=== PATIENT | female | born 1975 | race Hispanic/Latino ===

== ENCOUNTER 2016-10-16 16:44 | Emergency (ER) | payer OTHER ==
[2016-10-16 16:50] VITALS: TEMP 97.4; O2SAT 100
[2016-10-16] MEDS ORDERED: Sodium Chloride 0.9% 1,000 ML IV ONE (17:44)
[2016-10-16 18:02] LABS: BASO # 0.1 K/uL (0.0-0.2); BASO % 0.5 % (0.0-2.0); EOS # 0.1 K/uL (0.0-0.7); EOS % 0.4 % (0.0-4.0); HEMATOCRIT 39.5 % (34.0-47.0); LYMPH # 2.2 K/uL (1.0-4.3); LYMPH % 14.3 % (20.0-40.0); MEAN CELL VOLUME 93.3 fL (81.0-99.0); MEAN CORPUSCULAR HEMOGLOBIN 30.9 pg (27.0-31.0); MEAN CORPUSCULAR HGB CONC 33.1 g/dL (33.0-37.0); MEAN PLATELET VOLUME 7.8 fL (7.2-11.7); MONO # 0.8 K/uL (0.0-0.8); MONO % 4.9 % (0.0-10.0); RED CELL DISTRIBUTION WIDTH 13.3 % (11.5-14.5); WHITE BLOOD COUNT 15.5 K/uL (4.8-10.8)
[2016-10-16 18:03] LABS: RBC URINE < 1 /hpf (0-3); URINE BACTERIA RARE (<OCC); URINE BILIRUBIN NEGATIVE (NEGATIVE); URINE COLOR Straw (YELLOW); URINE GLUCOSE (UA) NORMAL (Normal); URINE KETONE NEGATIVE (NEGATIVE); URINE LEUKOCYTE ESTERASE NEG Leu/uL (Negative); URINE PROTEIN NEGATIVE (NEGATIVE); URINE UROBILINOGEN NORMAL mg/dL (0.2-1.0); WBC URINE 2 /hpf (0-5)
[2016-10-16 18:07] LABS: URINE BLOOD NEGATIVE (NEGATIVE)
[2016-10-16 18:08] LABS: CHLORIDE 100 mmol/L (98-107); SODIUM 139 mmol/L (132-148)
[2016-10-16 18:10] LABS: GFR AFRICAN-AMERICAN > 60
[2016-10-16 18:11] LABS: ALB/GLOB RATIO 1.5 (1.0-2.1); ALKALINE PHOSPHATASE 49 U/L (38-126); ALT/SGPT 26 U/L (9-52); AST/SGOT 18 U/L (14-36); BILIRUBIN,TOTAL 0.5 mg/dL (0.2-1.3); BLOOD UREA NITROGEN 5 mg/dL (7-17); CALCIUM 8.8 mg/dl (8.6-10.4); CARBON DIOXIDE 28 mmol/L (22-30); GLUCOSE,RANDOM 93 mg/dL (65-105)
--- NOTE | 2016-10-16 18:26 | C.PDOC ---
History Of Present Illness 40 y/o female presents to ED with complaints of lower abdominal pain since this morning with associated nausea that subsided throughout day. Patient had a D&C and Methrotexate 2 weeks ago for ectopic at [facility]. Patient reports beta was 391 today in obgyn's office today and denies vomiting, dysuria, hematuria, fever, vaginal bleeding, vaginal discharge or any other complaints at this time. LMP 08/01/16 Time Seen by Provider: 10/16/16 17:28 Chief Complaint (Nursing): Abdominal Pain History Per: Patient History/Exam Limitations: no limitations Onset/Duration Of Symptoms: Hrs Current Symptoms Are (Timing): Still Present Past Medical History Reviewed: Historical Data, Nursing Documentation, Vital Signs Vital Signs: Last Vital Signs Temp 97.4 F L 10/16/16 16:49 Pulse 59 L 10/16/16 16:49 Resp 18 10/16/16 16:49 BP 112/70 10/16/16 16:49 Pulse Ox 100 10/16/16 18:34 Family History: States: No Known Family Hx - Social History Hx Alcohol Use: No Hx Substance Use: No - Immunization History Hx Tetanus Toxoid Vaccination: No Hx Influenza Vaccination: No Hx Pneumococcal Vaccination: No Review Of Systems Except As Marked, All Systems Reviewed And Found Negative. Constitutional: Negative for: Fever, Chills Cardiovascular: Negative for: Chest Pain Respiratory: Negative for: Cough, Shortness of Breath Gastrointestinal: Positive for: Nausea, Abdominal Pain. Negative for: Vomiting , Diarrhea Genitourinary: Negative for: Dysuria, Hematuria, Vaginal Bleeding Musculoskeletal: Negative for: Back Pain Skin: Negative for: Rash Physical Exam - Physical Exam Appears: Non-toxic, No Acute Distress Skin: Normal Color, Warm, Dry, No Rash Head: Atraumatic, Normacephalic Eye(s): bilateral: Normal Inspection Oral Mucosa: Moist Neck: Normal ROM, Supple Chest: Symmetrical Cardiovascular: Rhythm Regular Respiratory: Normal Breath Sounds, No Rales, No Rhonchi, No Wheezing Gastrointestinal/Abdominal: Soft, Tenderness (to bilateral lower abdomen), No Guarding, No Rebound Extremity: Normal ROM, Capillary Refill (<2 seconds) Neurological/Psych: Oriented x3, Normal Speech, Normal Cognition ED Course And Treatment - Laboratory Results Result Diagrams: 10/16/16 17:55 08/29/17 17:55 O2 Sat by Pulse Oximetry: 100 (RA) Pulse Ox Interpretation: Normal Disposition - Disposition Disposition Time: 19:00 Condition: UNKNOWN Forms: [facility] (German) - Clinical Impression Clinical Impression: Abdominal pain - PA / ANDROID PROGRAMMER / Resident Statement MD/DO has examined the patient and agrees with the treatment plan. - Scribe Statement The provider has reviewed the documentation as recorded by the Scribe Mario Agarwal All medical record entries made by the Scribe were at my direction and personally dictated by me. I have reviewed the chart and agree that the record accurately reflects my personal performance of the history, physical exam, medical decision making, and the department course for this patient. I have also personally directed, reviewed, and agree with the discharge instructions and disposition. Physician Patient Turnover Patient Signed Over To: Joseph Hintno Handoff Comments: pending UA and US and disposition
[2016-10-16 19:17] VITALS: RESP 16
[2016-10-16 20:29] VITALS: BP 105/56; PULSE 66
--- NOTE | 2016-10-17 09:04 | US ---
HISTORY: s/p D C and methotrexate for ectopic 2 weeks ago COMPARISON: None available. TECHNIQUE: Transabdominal and transvaginal FINDINGS: UTERUS: Measures 7.8 x 3.5 x 3.9 cm. Posterior intramural uterine fibroid, 1.7 cm. No other mass. ENDOMETRIUM: Measures 5 mm in diameter. No intrauterine gestational sac. CERVIX: No cervical abnormality identified. RIGHT OVARY: Measures 3.5 x 2.1 x 3.1 cm. No solid mass. Normal flow. Right adnexal complex mass separate from the ovary, 3.5 x 2.3 x 2.3 cm with vascularity most notably about the periphery. This most likely represents the reportedly known ectopic gestation though no prior imaging studies are available at this institution, for comparison. LEFT OVARY: Measures 3.9 x 2.3 x 3.4 cm. No solid mass. Normal flow. FREE FLUID: There is moderate complex fluid in the cul-de-sac which may represent hemorrhagic material. This is concerning for possible ruptured ectopic . Further evaluation is advised. OTHER FINDINGS: None. IMPRESSION: Probable right adnexal ectopic gestation though no prior outside studies are available for comparison at this time. Complex fluid in the pelvis suggestive of possible ruptured ectopic . Please correlate clinically. Consider further evaluation. Preliminary interpretation of this examination was reported by [facility] at 9 p.m. on 10/16/2016. There is discordance of this report with the preliminary interpretation. Although complex pelvic fluid was mentioned in the preliminary report, the possibility that this represents hemorrhage from ruptured ectopic must be considered. Further evaluation is advised. These findings were discussed by telephone with Dr. Vazquez at 9 a.m. on 10/17/2016.
== END 2016-10-16 21:37 | disposition home or self-care (01) ==
LOC: C.ER 16:44
DX: R10.30 Lower abdominal pain, unspecified (principal)
CPT/HCPCS: 76830; 76856; 80053; 81001; 83690; 84702; 85025; 85610; 85730; 86850; 86900; 87086; 96360; 99285; J7040